=== PATIENT | female | born 1995 | race Caucasian/White ===

== ENCOUNTER 2018-08-30 19:18 | Emergency (ER) | payer BC ==
--- NOTE | 2018-08-30 20:06 | UC ---
Eye Complaint HPI - HPI Summary HPI Summary: R eye itching and painful. She does wear contacts but hasn't since this started. Denies vision issues. denies fever, sick contacts. +photophobia started during visit. - History of Current Complaint Chief Complaint: UCEye Stated Complaint: RIGHT EYE Time Seen by Provider: 08/30/18 20:05 Hx Obtained From: Patient Hx Last Menstrual Period: 08/09/17 Onset/Duration: Sudden Onset Severity Currently: Moderate Pain Intensity: 7 Pain Scale Used: 0-10 Numeric - Allergies/Home Medications Allergies/Adverse Reactions: Allergies Allergy/AdvReac Type Severity Reaction Status Date / Time No Known Allergies Allergy Verified 08/30/18 19:44 Home Medications: Home Medications Methylphenidate TAB* [Ritalin TAB*] 10 mg PO DAILY 08/30/18 [History Confirmed 08/30/18] PMH/Surg Hx/FS Hx/Imm Hx Previously Healthy: Yes - Surgical History Surgical History: None - Social History Alcohol Use: Occasionally Substance Use Type: None Smoking Status (MU): Never Smoked Tobacco Review of Systems All Other Systems Reviewed And Are Negative: Yes Constitutional: Negative: Fever Skin: Negative: Rash Eyes: Positive: Eye Redness, Other - R eye itching. Negative: Blurred Vision, Diplopia, Drainage, Photophobia ENT: Negative: Epistaxis, Sinus Congestion Neurological: Negative: Headache Physical Exam Triage Information Reviewed: Yes Vital Signs: Initial Vital Signs Temp 99.0 F 08/30/18 19:37 Pulse 80 08/30/18 19:37 Resp 16 08/30/18 19:37 BP 109/71 08/30/18 19:37 Pulse Ox 100 08/30/18 19:37 Vital Signs Reviewed: Yes Eyes: Positive: Conjunctiva Inflamed - MIld inflammation in R eye, lower conjunctiva, Other: - PERRLA. Negative: Discharge ENT: Positive: Pharynx normal, TMs normal Neurological: Positive: Alert, Other: - CN II-VII Eye Complaint Course/Dx - Course Course Of Treatment: sUDDEN R eye irritation w/ no vision issues; began to get photophobic during visit. not thought to be related to cranial nerve issue and vitals good. Strongly encouraged to see opthalm as we'll need tonometer for further eval. Advised to not use contacts at this point. not thought to be infectious. - Differential Dx/Diagnosis Differential Diagnosis/HQI/PQRI: Conjunctivitis, Keratitis, Uveitis Provider Diagnosis: Red eye Discharge - Sign-Out/Discharge Documenting (check all that apply): Patient Departure All imaging exams completed and their final reports reviewed: No Studies - Discharge Plan Condition: Good Disposition: HOME Patient Education Materials: Eye Pain (ED) Forms: *School Release, *Work Release Referrals: No Primary Care Phys,NOPCP [Primary Care Provider] - Additional Instructions: we discussed having you see your regular eye doctor as a walk in tomorrow. please make sure you go so we can make sure your eye pressure is normal. - Billing Disposition and Condition Condition: GOOD Disposition: Home
== END 2018-08-30 20:17 | disposition home or self-care (01) ==
LOC: UCCORT 19:18
DX: H57.89 Other specified disorders of eye and adnexa (principal); H53.141 Visual discomfort, right eye
CPT/HCPCS: 99202; G0463

== ENCOUNTER 2019-02-20 16:20 | Emergency (ER) | payer BC ==
[2019-02-20 16:39] VITALS: BP 123/89
--- NOTE | 2019-02-20 17:14 | UC ---
Throat Pain/Nasal Jonas HPI - HPI Summary HPI Summary: 23-year-old woman with chief complaint of upper respiratory tract infection symptoms for one week with worsening sore throat. Hurts to swallow. She took an [id number] medication which did not help. No cough or chest congestion. She does have some rhinorrhea. - History of Current Complaint Chief Complaint: UCRespiratory Stated Complaint: ST Time Seen by Provider: 02/20/19 17:06 Hx Last Menstrual Period: 01/25/19 Pain Intensity: 6 - Allergies/Home Medications Allergies/Adverse Reactions: Allergies Allergy/AdvReac Type Severity Reaction Status Date / Time No Known Allergies Allergy Verified 02/20/19 16:36 PMH/Surg Hx/FS Hx/Imm Hx Previously Healthy: Yes - Surgical History Surgical History: None - Social History Alcohol Use: Occasionally Substance Use Type: None Smoking Status (MU): Never Smoked Tobacco Review of Systems All Other Systems Reviewed And Are Negative: Yes Constitutional: Positive: Negative Skin: Positive: Negative Eyes: Positive: Negative ENT: Positive: Sore Throat, Nasal Discharge Respiratory: Positive: Negative Cardiovascular: Positive: Negative Gastrointestinal: Positive: Negative Motor: Positive: Negative Neurovascular: Positive: Negative Musculoskeletal: Positive: Negative Neurological: Positive: Negative Psychological: Positive: Negative Is Patient Immunocompromised?: No Physical Exam Triage Information Reviewed: Yes Appearance: No Pain Distress, Well-Nourished, Ill-Appearing - MILD Vital Signs: Initial Vital Signs Temp 99.7 F 02/20/19 16:37 Pulse 91 02/20/19 16:37 Resp 17 02/20/19 16:37 BP 123/89 02/20/19 16:37 Pulse Ox 100 02/20/19 16:37 Vital Signs Reviewed: Yes Eye Exam: Normal Eyes: Positive: Conjunctiva Clear ENT: Positive: Pharyngeal erythema, Nasal congestion, Nasal drainage, TMs normal , Uvula midline, Other - Oral pharynx is open. No signs of a peritonsillar abscess on exam today. Voice is normal Neck: Positive: Supple Respiratory: Positive: Lungs clear, Normal breath sounds, No respiratory distress Cardiovascular: Positive: RRR Musculoskeletal: Positive: Strength Intact, ROM Intact Neurological: Positive: Alert, Muscle Tone Normal Psychological: Positive: Age Appropriate Behavior Skin Exam: Normal Throat Pain/Nasal Course/Dx - Course Course Of Treatment: DISCUSSED VIRAL VERSES BACTERIAL INFECTION AND THE ROLE OF ANTIBIOTICS. PATIENT PREFERS TO BE ON ANTIBIOTICS AT THIS TIME. - Differential Dx/Diagnosis Provider Diagnosis: Pharyngitis Discharge ED - Sign-Out/Discharge Documenting (check all that apply): Patient Departure All imaging exams completed and their final reports reviewed: No Studies - Discharge Plan Condition: Stable Disposition: HOME Prescriptions: Amoxicillin PO (*) [Amoxicillin 875 MG (*)] 875 mg PO BID #20 tab Patient Education Materials: Pharyngitis (ED) Referrals: Debra Nieto NUCLEAR EQUIPMENT DESIGN ENGINEER [Primary Care Provider] - Additional Instructions: FOLLOW UP WITH YOUR DOCTOR IF NOT COMPLETELY IMPROVED. GET REEVALUATED SOONER IF WORSE OR ANY QUESTIONS OR CONCERNS. - Billing Disposition and Condition Condition: STABLE Disposition: Home
== END 2019-02-20 17:19 | disposition home or self-care (01) ==
LOC: UCCORT 16:20
DX: J02.9 Acute pharyngitis, unspecified (principal)
CPT/HCPCS: 87651; 99212; G0463

== ENCOUNTER 2019-07-19 08:02 | Emergency (ER) | payer BC ==
[2019-07-19 08:49] VITALS: BP 108/52
[2019-07-19 09:19] LABS: Influenza A Molecular Negative (Negative); Influenza B Molecular Negative (Negative)
--- NOTE | 2019-07-19 09:43 | UC ---
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 + abdominal cramping. No fever. Feels unwell with mild headache. Last vomited this morning. Drinking water well and voiding normally. - History of Current Complaint Chief Complaint: UCGeneralIllness Stated Complaint: FLULIKE SYMPTOMS Time Seen by Provider: 07/19/19 09:33 Hx Obtained From: Patient Hx Last Menstrual Period: 01/25/19 Onset/Duration: Gradual Onset, Lasting Days - 4 Severity Currently: Mild Severity Initially: Moderate Pain Intensity: 7 Associated Signs & Symptoms: Positive: Myalgia, Headache, Vomiting, Diarrhea - Risk Factors Influenza Risk Factors: Negative - Allergy/Home Medications Allergies/Adverse Reactions: Allergies Allergy/AdvReac Type Severity Reaction Status Date / Time No Known Allergies Allergy Verified 07/19/19 08:49 PMH/Surg Hx/FS Hx/Imm Hx Previously Healthy: Yes - Surgical History Surgical History: None - Family History Known Family History: Positive: Non-Contributory - Social History Occupation: Student Lives: Dormitory/Roommates Alcohol Use: Weekly Substance Use Type: None Smoking Status (MU): Never Smoked Tobacco Review of Systems All Other Systems Reviewed And Are Negative: Yes Constitutional: Positive: Fatigue Skin: Positive: Negative Eyes: Positive: Negative ENT: Positive: Negative Respiratory: Positive: Negative Cardiovascular: Positive: Negative Gastrointestinal: Positive: Vomiting, Diarrhea, Nausea Genitourinary: Positive: Negative Motor: Positive: Negative Neurovascular: Positive: Negative Musculoskeletal: Positive: Negative Neurological/Mental Status: Positive: Headache Psychological: Positive: Negative Is Patient Immunocompromised?: No Physical Exam Triage Information Reviewed: Yes Appearance: Ill-Appearing - looks pale and fatigued. Vital Signs: Initial Vital Signs Temp 98.1 F 07/19/19 08:43 Pulse 72 07/19/19 08:43 Resp 17 07/19/19 08:43 BP 108/52 07/19/19 08:43 Pulse Ox 100 07/19/19 08:43 Eye Exam: Normal ENT: Positive: Pharynx normal, TMs normal Respiratory: Positive: Lungs clear, Normal breath sounds Cardiovascular: Positive: RRR, No Murmur Abdomen Description: Positive: Nontender, No Organomegaly, Soft Bowel Sounds: Positive: Present Musculoskeletal Exam: Normal Neurological Exam: Normal Psychological Exam: Normal Skin Exam: Normal Diagnostics - Laboratory Lab Results: rapid flu negative Flu Course/Dx - Course Course Of Treatment: zofran for nausea, discussed hydration and monitoring for progressive symptoms. - Differential Dx/Diagnosis Differential Diagnosis/HQI/PQRI: Other - viral syndrome, gastroenteritis. Provider Diagnosis: Gastroenteritis Discharge ED - Sign-Out/Discharge Documenting (check all that apply): Patient Departure All imaging exams completed and their final reports reviewed: No Studies - Discharge Plan Condition: Stable Disposition: HOME Prescriptions: Ondansetron ODT TAB* [Zofran 4 MG Odt TAB*] 4 mg PO Q6H PRN #10 tab.odt PRN Reason: Nausea Patient Education Materials: Gastroenteritis (ED) Forms: *School Release Referrals: Debra Nieto, PAPER STRIPPER [Primary Care Provider] - Additional Instructions: Use ondansetron (zofran) for nausea and focus on increasing fluids. Add soup broth and ensure high intake of fluids. Make efforts to increase intake with addition of easily digestible foods (smoothies, yogurts, pasta, toast, cooked vegetables or fruits). follow up if you have increasing abdominal pain or persistent vomiting, or symptoms of dehydration. - Billing Disposition and Condition Condition: STABLE Disposition: Home
== END 2019-07-19 09:56 | disposition home or self-care (01) ==
LOC: UCCORT 08:02
DX: K52.9 Noninfective gastroenteritis and colitis, unspecified (principal)
CPT/HCPCS: 99212; G0463